=== PATIENT | male | born 1955 | race Caucasian/White ===

== ENCOUNTER 2019-01-14 22:21 | Inpatient (IN) | payer OTHER ==
[~2019-01-14] VITALS: Ht 167.6 cm; Wt 88.6 kg
[2019-01-14 22:30] VITALS: Ht 167.6 cm; Wt 88.6 kg
[2019-01-14 23:04] LABS: PLATELET COUNT 173 x10^3mcL (130-400); RED CELL DISTRIBUTION WIDTH 13.8 % (11.5-14.5)
[2019-01-14 23:17] LABS: BAND NEUTROPHIL 7 % (0-10); MONOCYTE 3 % (0-7); SEGMENTED NEUTROPHILS 87 % (37-75)
[2019-01-14 23:18] LABS: PLATELET MORPHOLOGY PLATELETS NORMAL; rbc morphology (normal/abnorm) NORMAL (NORMAL)
[2019-01-14 23:31] LABS: CALCIUM 8.2 mg/dL (8.5-10.1); CARBON DIOXIDE 27.1 mmol/L (21-32); CREATININE SERUM 1.8 mg/dL (0.7-1.3); POTASSIUM SERUM 4.7 mmol/L (3.5-5.1)
[2019-01-14 23:36] LABS: ALBUMIN 3.6 g/dL (3.4-5.0); BILIRUBIN TOTAL 0.9 mg/dL (0.20-1.00); TOTAL PROTEIN, SERUM 7.2 g/dL (6.4-8.2)
[2019-01-15] VITALS (7 sets, daily range): BP systolic 90–99; BP diastolic 47–67
[2019-01-15 01:00] LABS: UA SPECIFIC GRAVITY 1.015 (1.005-1.035); microscopic required? YES; urine erythrocyte NEGATIVE (NEGATIVE)
[2019-01-15] MEDS ORDERED: DULERA1 AR2 INH (04:38)
[2019-01-15] MEDS ORDERED: MULTI-VITAMINS1 TAB PO (04:39)
[2019-01-15] MEDS ORDERED: NOR5 PO (04:39)
[2019-01-15] MEDS ORDERED: LIPI20 PO (04:39)
[2019-01-15] MEDS ORDERED: XOPENEX HF0.045 MG/1 INH (04:39)
[2019-01-16 03:41] VITALS: BP 95/57
[2019-01-16 05:28] LABS: PLATELET COUNT 138 x10^3mcL (130-400)
[2019-01-16 05:41] LABS: CALCIUM 7.8 mg/dL (8.5-10.1); CARBON DIOXIDE 23.3 mmol/L (21-32); CREATININE SERUM 1.3 mg/dL (0.7-1.3); POTASSIUM SERUM 3.9 mmol/L (3.5-5.1)
[2019-01-16 06:13] LABS: BAND NEUTROPHIL 7 % (0-10); MONOCYTE 3 % (0-7); SEGMENTED NEUTROPHILS 86 % (37-75)
[2019-01-16 06:14] LABS: PLATELET MORPHOLOGY PLATELETS NORMAL; rbc morphology (normal/abnorm) NORMAL (NORMAL)
[2019-01-16 07:20] VITALS: BP 105/59
[2019-01-16 11:30] VITALS: BP 118/76
[2019-01-16 15:15] VITALS: BP 124/83
[2019-01-16 21:25] VITALS: BP 140/77
== END 2019-01-17 01:59 | disposition short-term general hospital (02) | DRG 871 ==
LOC: ED 22:21 → IC 01-15 04:11 → DU 01-16 19:19
PROVIDERS: Emergency Medicine; ADMIT Internal Medicine
DX: A41.9 Sepsis, unspecified organism (principal); R65.21 Severe sepsis with septic shock; L03.213 Periorbital cellulitis; K80.00 Calculus of gallbladder with acute cholecystitis without obstruction; N39.0 Urinary tract infection, site not specified; Z88.0 Allergy status to penicillin; J44.9 Chronic obstructive pulmonary disease, unspecified; I10 Essential (primary) hypertension; E78.5 Hyperlipidemia, unspecified; H04.302 Unspecified dacryocystitis of left lacrimal passage
CPT/HCPCS: 78226; 87804; 94150; A9537; J0696; J1644; J1885; J1956; J2310; J2405; J3370; J3490; J7030; J7050; J7620; Q0092